=== PATIENT | male | born 1950 | race Caucasian/White ===

== ENCOUNTER 2017-10-14 05:59 | Inpatient (IN) | payer MEDICAID, MEDICARE ==
[~2017-10-14] VITALS: Ht 180.3 cm; Wt 99.8 kg
[~2017-10-14 05:59] MED LIST: ALBU8.5H8 IH; ASPI-618 PO; ATOR40TA PO; AZEL23SP EA NOSTRIL; CHOL400C8 PO; LISI-607 PO; Nitroglycerin SL; SITA50TA PO; TAMS0.4C34 PO
--- NOTE | 2017-10-14 06:06 | NUR ---
Pt BIB [facility], reports pt has upper quadrant ABD pain JL=285; IV 20g L AC. Pt c/o of severe upper ABD pain, 10/10, and tenderness w/guarding. Pt denies CP, SOB, dizziness, n/v, no other complaints, moderate distress noted.
[2017-10-14 06:33] LABS: BASOPHILS # (AUTO) 0.1 K/uL (0.0-8.0); BASOPHILS % (AUTO) 0.9 % (0.0-2.0); EOSINOPHILS # (AUTO) 0.2 K/uL (0.0-0.7); EOSINOPHILS % (AUTO) 3.4 % (0.0-7.0); HEMATOCRIT 47.9 % (36.7-47.1); LYMPHOCYTES # (AUTO) 1.2 K/uL (20.0-40.0); LYMPHOCYTES % (AUTO) 17.3 % (20.5-51.5); MEAN CORPUSCULAR HEMOGLOBIN 29.8 uug (23.8-33.4); MEAN CORPUSCULAR HGB CONC 34 g/dL (32.5-36.3); MEAN CORPUSCULAR VOLUME 88.9 fL (73.0-96.2); MONOCYTES # (AUTO) 0.3 K/uL (2.0-10.0); MONOCYTES % (AUTO) 4.9 % (0.0-11.0); NEUTROPHILS # (AUTO) 5.2 K/uL (1.8-8.9); NEUTROPHILS % (AUTO) 73.5 % (38.5-71.5); PLATELET COUNT (AUTO) 150 K/uL (152-348); RED BLOOD CELL COUNT(AUTO) 5.38 MIL/uL (4.06-5.63); WHITE BLOOD COUNT (AUTO) 7.1 K/uL (3.6-10.2)
[2017-10-14 06:45] LABS: BILIRUBIN,DIRECT 0.1 mg/dL (0.0-0.2); BILIRUBIN,TOTAL 0.4 mg/dL (0.2-1.0); POTASSIUM 4.4 mmol/L (3.5-5.1)
[2017-10-14] MEDS ORDERED: MORPHINE SULFATE 2 MG/1 ML DISP.SYRIN IV ONE (06:45)
[2017-10-14] MEDS ORDERED: IV NS 1000 ML 1,000 ML IV ONE (06:45)
[2017-10-14] MEDS ORDERED: ONDANSETRON IV *ER 4 MG/2 ML VIAL IV ONE (06:45)
[2017-10-14 07:02] LABS: CREATININE 1.4 mg/dL (0.6-1.3)
[2017-10-14] MEDS ORDERED: ONDANSETRON 4 MG/2 ML VIAL ONE (07:04)
[2017-10-14] MEDS ORDERED: MORPHINE SULFATE 4 MG/1 ML DISP.SYRIN ONE (07:04)
[2017-10-14] MEDS ORDERED: IV NORMAL SALINE 0 ML IV ONE (07:09)
[2017-10-14] MEDS ORDERED: IOHEXOL 300MG/ML 100 ML INFUS..BTL ONE (07:09)
[2017-10-14] MEDS ORDERED: NORMAL SALINE FLUSH 10 ML DISP.SYRIN ONE (07:09)
--- NOTE | 2017-10-14 07:12 | NUR ---
Pt going to CT.
--- NOTE | 2017-10-14 07:29 | NUR ---
assumed pt care 66 years old male with abd pain pt returns from ct alert, oriented x4 stated pain improved lab drawn result in progress will continue to monitor.
[2017-10-14 08:18] LABS: *BILIRUBIN,URIN NEGATIVE (NEGATIVE); *BLOOD, URINE 1+ (NEGATIVE); *CLARITY,URINE CLEAR (CLEAR); *KETONES,URINE NEGATIVE (NEGATIVE); *PROTEIN,URINE NEGATIVE (NEGATIVE); *UROBILINOGEN,URINE 0.2 E.U./dl (NORMAL); LEUKOCYTE ESTERASE ,URINE NEGATIVE (NEGATIVE); NITRITE, URINE NEGATIVE (NEGATIVE); PH,URINE 5.5 (5.0-8.0); UGLUCOSE NEGATIVE (NEGATIVE)
[2017-10-14 08:33] LABS: *COLOR,URINE COLORLESS (YELLOW)
[2017-10-14 08:37] LABS: BACTERIA,URINE NONE SEEN /HPF (NONE SEEN); RBC,URINE 0-3 /HPF (0-3); SQUAMOUS EPITHELIAL CELL,UR FEW /HPF (NONE SEEN); WBC,URINE 0-3 /HPF (0-3)
[2017-10-14] MEDS ORDERED: METRONIDAZOLE 500 MG/NS 100 ML PIGGYBACK IV ONE (09:00)
[2017-10-14] MEDS ORDERED: CIPROFLOXACIN IV 400 MG in PREMIXED 1 EACH IV SCH (09:00)
[2017-10-14] MEDS ORDERED: IV NS 1000 ML 1,000 ML IV PRN (09:00)
--- NOTE | 2017-10-14 09:13 | NUR ---
Dr Delfin Mahmood talked to Dr Shell for surgery consult, pt awaiting for admit bed
--- NOTE | 2017-10-14 09:30 | NUR ---
called nurse Rivera for report and replied she will call back after meds pass.
--- NOTE | 2017-10-14 09:41 | NUR ---
called [facility] at [phone]
[2017-10-14] MEDS ORDERED: METRONIDAZOLE 500 MG/NS 100ML 100 ML IV ONE (09:51)
[2017-10-14] MEDS ORDERED: ONDANSETRON 4 MG/2 ML VIAL IV PRN (10:15)
[2017-10-14] MEDS ORDERED: ALBUTEROL SULFATE 8 GM HFA.AER.AD IH PRN (10:15)
[2017-10-14] MEDS ORDERED: MORPHINE SULFATE 2 MG/1 ML DISP.SYRIN IV PRN (10:15)
[2017-10-14] MEDS ORDERED: MORPHINE SULFATE 4 MG/1 ML DISP.SYRIN IV PRN (10:30)
[2017-10-14] MEDS ORDERED: ALBUTEROL SULFATE 2.5 MG/3 ML NEBU NEB PRN (10:30)
--- NOTE | 2017-10-14 10:30 | NUR ---
RECEIVED PATIENT FROM ER. ORIENTED TO ROOM, MADE COMFORTABLY. DENIES ACUTE PAIN. 11/24 COMFORT NUMBER. AT BEDSIDE , SUPPORTIVE OF PATIENT CARE. AWARE NPO , TELE AND OTHER MD ORDERS , VERBALIZED UNDERSTANDING.
--- NOTE | 2017-10-14 11:00 | NUR ---
FAMILY AT BEDSIDE, SUPPORTIVE OF PATIENT CARE.
[2017-10-14 11:38] VITALS: BP 116/65
[2017-10-14] MEDS ORDERED: DEXTROSE 50% 50 ML DISP.SYRIN IV PRN (11:45)
[2017-10-14] MEDS ORDERED: INSULIN REGULAR, HUMAN 300 UNIT/3 ML VIAL SQ PRN (11:45)
[2017-10-14] MEDS: PIPERACILLIN/TAZOBACTAM/D5W 50 ML IV SCH ×3 (12:28→22:35)
[2017-10-14] MEDS: POTASSIUM CHLORIDE 20 MEQ in IV D5/ 0.9% NACL 1,000 ML IV PRN (12:29)
[2017-10-14] MEDS: BLOOD SUGAR DIAGNOSTIC 1 EACH STRIP VI SCH ×3 (12:30→23:14)
--- NOTE | 2017-10-14 13:26 | NUR ---
NPO MAINTAINED, RESTING WELL. NO DISTRESS NOTED.
--- NOTE | 2017-10-14 15:30 | NUR ---
NO NOTED REACTION FROM ANTIBIOTIC, PATIENT RESTING WELL.
[2017-10-14 15:48] VITALS: BP 109/76
--- NOTE | 2017-10-14 16:00 | NUR ---
COMPLAINT OF HEADACHE BUT REFUSED MEDS WHEN OFFERED, REFUSED ICE FOR COMFORT, WILL MONITOR. VITALS 124/75 HR 68 20
--- NOTE | 2017-10-14 17:45 | NUR ---
DOWN TO NUCLEAR MED FOR HIDA SCAN , LEFT TO REST.
--- NOTE | 2017-10-14 19:05 | NUR ---
BACK FROM 1ST HIDA SERIES, TOLERATED WELL
[2017-10-14 20:46] VITALS: BP 115/76
[2017-10-14 23:59] VITALS: BP 118/65
[2017-10-15] MEDS: PIPERACILLIN/TAZOBACTAM/D5W 50 ML IV SCH ×5 (04:36→22:03)
[2017-10-15 04:37] VITALS: BP 120/76
--- NOTE | 2017-10-15 06:09 | NUR ---
pt admitted for upper quadrant abdominal pain, completed HIDA scan last night, had episode of asthma attack upon returning from hida scan and then given breathing treatment with good relief. kept npo for possible surgery but no order yet. continue on iv fluids and antibiotics, complaining of headache this morning given morphine and zofran. no reaction noted pt went back to sleep.sinus rhythm on monitor, voiding,vss,afebrile. scd applied.
[2017-10-15] MEDS: POTASSIUM CHLORIDE 20 MEQ in IV D5/ 0.9% NACL 1,000 ML IV PRN ×2 (06:23→15:39)
[2017-10-15] MEDS: BLOOD SUGAR DIAGNOSTIC 1 EACH STRIP VI SCH ×4 (06:35→22:04)
[2017-10-15 06:52] LABS: BASOPHILS # (AUTO) 0.1 K/uL (0.0-8.0); EOSINOPHILS # (AUTO) 0.3 K/uL (0.0-0.7); EOSINOPHILS % (AUTO) 4.5 % (0.0-7.0); HEMATOCRIT 48.6 % (36.7-47.1); HEMOGLOBIN 16.6 g/dL (12.5-16.3); LYMPHOCYTES # (AUTO) 1.2 K/uL (20.0-40.0); LYMPHOCYTES % (AUTO) 18.9 % (20.5-51.5); MEAN CORPUSCULAR HEMOGLOBIN 30.2 uug (23.8-33.4); MEAN CORPUSCULAR HGB CONC 34 g/dL (32.5-36.3); MEAN CORPUSCULAR VOLUME 88.7 fL (73.0-96.2); MONOCYTES # (AUTO) 0.4 K/uL (2.0-10.0); MONOCYTES % (AUTO) 7.2 % (0.0-11.0); NEUTROPHILS # (AUTO) 4.2 K/uL (1.8-8.9); NEUTROPHILS % (AUTO) 68.4 % (38.5-71.5); PLATELET COUNT (AUTO) 145 K/uL (152-348); RED BLOOD CELL COUNT(AUTO) 5.48 MIL/uL (4.06-5.63); WHITE BLOOD COUNT (AUTO) 6.1 K/uL (3.6-10.2)
[2017-10-15 06:55] LABS: BILIRUBIN,TOTAL 1.2 mg/dL (0.2-1.0); CREATININE 1.4 mg/dL (0.6-1.3); MAGNESIUM 1.9 mg/dL (1.8-2.4); PHOSPHOROUS 3.1 mg/dL (2.5-4.9); POTASSIUM 4.3 mmol/L (3.5-5.1); TOTAL PROTEIN, SERUM 6.6 g/dL (6.4-8.2)
[2017-10-15 06:58] LABS: THYROID STIMULATING HORMONE 2.694 mIU/mL (0.358-3.740)
[2017-10-15] MEDS: PANTOPRAZOLE SODIUM 40 MG TABLET.DR PO SCH (07:35)
--- NOTE | 2017-10-15 07:45 | NUR ---
PT RECEIVED IN BED AWAKE.PT C/O PAIN V/S ARE STABLE ,CALL LIGHT WITH IN REACH PT SAID HE IS WAITING FOR THE SURGEN
[2017-10-15] MEDS ORDERED: CIPROFLOXACIN IV 400 MG in PREMIXED 1 EACH IV SCH (09:00)
[2017-10-15] MEDS ORDERED: KETOROLAC TROMETHAMINE 15 MG INJ IVP PRN (10:15)
[2017-10-15 11:00] VITALS: BP 131/77
[2017-10-15] MEDS ORDERED: ACETAMINOPHEN 325 MG TABLET PO PRN (12:00)
[2017-10-15] MEDS: SUCRALFATE 1 G TABLET PO SCH ×3 (12:45→21:58)
[2017-10-15] MEDS ORDERED: DEXTROSE 50% 50 ML DISP.SYRIN IV PRN (13:00)
[2017-10-15] MEDS: ASPIRIN EC 81 MG TABLET.DR PO SCH (13:32)
[2017-10-15 15:20] VITALS: BP 138/85
--- NOTE | 2017-10-15 15:57 | NUR ---
pt seen by gastrologist
--- NOTE | 2017-10-15 19:30 | NUR ---
19PT AWAKE ALERT ORIENTEDX4. PT WILL BE NPO AT MIDNIGHT. PT IS AWARE. PT IV INTACT AND PATENT. SAFETY AND COMFORT PROVIDED.
[2017-10-15 20:15] VITALS: BP 124/78
--- NOTE | 2017-10-15 20:45 | NUR ---
HANDOFF REPORT GIVEN TO MURPHY DEL TORO .
--- NOTE | 2017-10-15 21:00 | NUR ---
RECEIVED PATIENT IN BED ALERT ORIENTED, NO COMPLAIN OF PAIN AT THIS TIME, REMIND PATIENT THAT HE NEEDS TO BE NPO AFTER MIDNIGHT, CALL LIGHT WITHIN REACH.
[2017-10-15] MEDS: TAMSULOSIN HCL 0.4 MG CAP.SR.24H PO SCH (21:58)
[2017-10-16] MEDS: PIPERACILLIN/TAZOBACTAM/D5W 50 ML IV SCH ×4 (05:03→23:21)
[2017-10-16] MEDS: POTASSIUM CHLORIDE 20 MEQ in IV D5/ 0.9% NACL 1,000 ML IV PRN (05:13)
[2017-10-16] MEDS: PANTOPRAZOLE SODIUM 40 MG TABLET.DR PO SCH (06:05)
[2017-10-16 06:35] VITALS: BP 123/72
[2017-10-16] MEDS: BLOOD SUGAR DIAGNOSTIC 1 EACH STRIP VI SCH ×5 (06:54→20:52)
--- NOTE | 2017-10-16 07:08 | NUR ---
PATIENT SLEPT ON AND OFF, NO SOB NO CHEST PAIN, NO COMPLAIN OF PAIN AT THIS TIME. CONT ON NPO, ASSISTED WITH TOILETING, CALL LIGHT WITHIN REACH.
[2017-10-16 07:09] LABS: BASOPHILS # (AUTO) 0.1 K/uL (0.0-8.0); BASOPHILS % (AUTO) 0.9 % (0.0-2.0); EOSINOPHILS # (AUTO) 0.4 K/uL (0.0-0.7); EOSINOPHILS % (AUTO) 5.8 % (0.0-7.0); HEMATOCRIT 47.7 % (36.7-47.1); HEMOGLOBIN 16.1 g/dL (12.5-16.3); LYMPHOCYTES # (AUTO) 1.5 K/uL (20.0-40.0); LYMPHOCYTES % (AUTO) 22.9 % (20.5-51.5); MEAN CORPUSCULAR HEMOGLOBIN 29.9 uug (23.8-33.4); MEAN CORPUSCULAR HGB CONC 34 g/dL (32.5-36.3); MEAN CORPUSCULAR VOLUME 88.8 fL (73.0-96.2); MONOCYTES # (AUTO) 0.5 K/uL (2.0-10.0); MONOCYTES % (AUTO) 7.5 % (0.0-11.0); NEUTROPHILS % (AUTO) 62.9 % (38.5-71.5); PLATELET COUNT (AUTO) 133 K/uL (152-348); RED BLOOD CELL COUNT(AUTO) 5.37 MIL/uL (4.06-5.63); WHITE BLOOD COUNT (AUTO) 6.4 K/uL (3.6-10.2)
[2017-10-16] MEDS: SUCRALFATE 1 G TABLET PO SCH ×4 (07:30→20:54)
[2017-10-16 07:32] LABS: BILIRUBIN,TOTAL 0.9 mg/dL (0.2-1.0); CREATININE 1.6 mg/dL (0.6-1.3); MAGNESIUM 2.1 mg/dL (1.8-2.4); PHOSPHOROUS 2.8 mg/dL (2.5-4.9); POTASSIUM 4.5 mmol/L (3.5-5.1); TOTAL PROTEIN, SERUM 6.5 g/dL (6.4-8.2)
[2017-10-16] MEDS: LINAGLIPTIN 5 MG TABLET PO SCH (08:00)
[2017-10-16] MEDS: ASPIRIN EC 81 MG TABLET.DR PO SCH (08:50)
[2017-10-16] MEDS ORDERED: SITAGLIPTIN PHOSPHATE 50 MG TABLET PO SCH (09:00)
[2017-10-16] MEDS ORDERED: ONDANSETRON 4 MG/2 ML VIAL IV ONE (11:02)
[2017-10-16] MEDS ORDERED: SEVOFLURANE 250 ML BOTTLE IH ONE (11:02)
[2017-10-16] MEDS ORDERED: NEOSTIGMINE METHYLSULFATE 10 MG/10 ML VIAL IV ONE (11:02)
[2017-10-16] MEDS ORDERED: EPHEDRINE SULFATE 50 MG/ML AMPUL MC ONE (11:02)
[2017-10-16] MEDS ORDERED: PROPOFOL 200 MG/20 ML BOTTLE IV ONE (11:02)
[2017-10-16] MEDS ORDERED: IV NORMAL SALINE 1000 ML BAG IV ONE (11:02)
[2017-10-16] MEDS ORDERED: DEXAMETHASONE SOD PHOSPHATE 4 MG INJ IV ONE (11:02)
[2017-10-16] MEDS ORDERED: GLYCOPYRROLATE 0.2 MG/ML VIAL MC ONE (11:02)
[2017-10-16] MEDS ORDERED: LIDOCAINE HCL 1% 20 ML VIAL MC ONE (11:02)
[2017-10-16] MEDS ORDERED: CEFAZOLIN 1 G VIAL MC ONE (11:02)
[2017-10-16 11:36] VITALS: BP 121/70
[2017-10-16] MEDS ORDERED: LIDOCAINE HCL 1% 20 ML VIAL ONE (12:36)
[2017-10-16] MEDS ORDERED: BUPIVACAINE/EPI PF 0.25% 30 ML VIAL ONE (12:40)
[2017-10-16] MEDS ORDERED: ROCURONIUM BROMIDE 50 MG/5 ML VIAL ONE (15:50)
[2017-10-16] MEDS ORDERED: FENTANYL CITRATE 100 MCG/2 ML AMPUL ONE ×3 (15:50→19:48)
[2017-10-16] MEDS ORDERED: BUPIVACAINE PF 0.5% 30 ML VIAL ONE (18:39)
[2017-10-16 20:30] VITALS: BP 152/77
[2017-10-16] MEDS ORDERED: MORPHINE SULFATE 2 MG/1 ML DISP.SYRIN IV PRN (20:30)
[2017-10-16] MEDS ORDERED: MORPHINE SULFATE 4 MG/1 ML DISP.SYRIN IV PRN (20:30)
[2017-10-16] MEDS ORDERED: HYDROCODONE/APAP 5-325MG TABLET PO PRN ×2 (20:30)
[2017-10-16] MEDS ORDERED: POTASSIUM CHLORIDE 20 MEQ in IV D5 1/2 NS 1000 ML 1,000 ML IV PRN (20:30)
--- NOTE | 2017-10-16 20:31 | NUR ---
patient received from PACU s/p lap cholecystectomy. Awake alert and oriented. abdomen with 4 lap sites with 2x2 dressing with tegaderm. Vital signs taken and recorded. BP 152/77 HR 74 Resp 20 temp 95.6 98% on 2L O2. Patient started on clear liquids no nausea nor vomiting noted. Tolerated well. Will monitor patient. Kept comfortable. No acute distress noted.
[2017-10-16 20:45] VITALS: BP 125/82
[2017-10-16] MEDS: TAMSULOSIN HCL 0.4 MG CAP.SR.24H PO SCH (20:54)
[2017-10-16] MEDS: POTASSIUM CHLORIDE 20 MEQ in IV D5 1/2 NS 1000 ML 1,000 ML IV PRN (21:11)
[2017-10-17] VITALS: BP 143/90
[2017-10-17 04:00] VITALS: BP 116/71
[2017-10-17] MEDS: PIPERACILLIN/TAZOBACTAM/D5W 50 ML IV SCH ×4 (04:25→22:30)
[2017-10-17] MEDS: SUCRALFATE 1 G TABLET PO SCH ×4 (06:30→20:44)
[2017-10-17] MEDS: PANTOPRAZOLE SODIUM 40 MG TABLET.DR PO SCH (06:30)
[2017-10-17] MEDS: BLOOD SUGAR DIAGNOSTIC 1 EACH STRIP VI SCH ×4 (06:32→20:54)
[2017-10-17 06:51] LABS: BASOPHILS # (AUTO) 0.1 K/uL (0.0-8.0); BASOPHILS % (AUTO) 0.8 % (0.0-2.0); EOSINOPHILS % (AUTO) 0.4 % (0.0-7.0); HEMATOCRIT 46.3 % (36.7-47.1); HEMOGLOBIN 15.7 g/dL (12.5-16.3); LYMPHOCYTES % (AUTO) 10.1 % (20.5-51.5); MEAN CORPUSCULAR HEMOGLOBIN 30.3 uug (23.8-33.4); MEAN CORPUSCULAR HGB CONC 34 g/dL (32.5-36.3); MEAN CORPUSCULAR VOLUME 89.1 fL (73.0-96.2); MONOCYTES # (AUTO) 0.7 K/uL (2.0-10.0); MONOCYTES % (AUTO) 6.9 % (0.0-11.0); NEUTROPHILS # (AUTO) 8.1 K/uL (1.8-8.9); NEUTROPHILS % (AUTO) 81.8 % (38.5-71.5); PLATELET COUNT (AUTO) 154 K/uL (152-348); RED BLOOD CELL COUNT(AUTO) 5.19 MIL/uL (4.06-5.63); WHITE BLOOD COUNT (AUTO) 9.9 K/uL (3.6-10.2)
[2017-10-17] MEDS: LINAGLIPTIN 5 MG TABLET PO SCH (08:00)
[2017-10-17 08:50] LABS: CREATININE 1.5 mg/dL (0.6-1.3); POTASSIUM 4.8 mmol/L (3.5-5.1)
[2017-10-17] MEDS: INSULIN REGULAR, HUMAN 300 UNIT/3 ML VIAL SQ PRN (08:56)
[2017-10-17 11:40] VITALS: BP 122/85
[2017-10-17 11:43] VITALS: BP 121/69
[2017-10-17] MEDS: POTASSIUM CHLORIDE 20 MEQ in IV D5 1/2 NS 1000 ML 1,000 ML IV PRN (13:18)
[2017-10-17] MEDS ORDERED: ACETAMINOPHEN/CODEINE 300-30 MG TABLET PO PRN (15:45)
[2017-10-17 15:54] VITALS: BP 125/73
[2017-10-17] MEDS: METOCLOPRAMIDE HCL 10 MG TABLET PO SCH ×2 (16:30→20:44)
--- NOTE | 2017-10-17 18:34 | NUR ---
PT WILL STAY UNTIL TOMORROW. POSSIBLE D/C. PT IS CALM, COOPERATIVE, HAS HAD SEVERAL BMS. PT TOLERATING LIQUIDS AT THIS TIME NO SOLID FOOD EATEN. PT USES SPIROMETER AND ENCOURAGED TO AMBULATE. PT SHOWS NO SIGNS OF RESPIRATORY DISTRESS, VITALS STABLE AT THIS TIME. DAUGHTER AT THE BEDSIDE. CONTINUE TO MONITOR PT.
--- NOTE | 2017-10-17 19:30 | NUR ---
PT AWAKE, ALERT AND ORIENTEDX4. PT VITAL SIGNS WITHIN NORMAL LIMIT. PT SHOWS NO SIGNS OF DISTRESS. PT SAID HE HAD BOWEL MOVEMENT ALREADY. ADVISED TO USE THE SPIROMETER. CALL LIGHT WITHIN REACH. BED ALARM ON. WILL CONTINUE TO MONITOR.
[2017-10-17 20:00] VITALS: BP 111/60
[2017-10-17] MEDS: TAMSULOSIN HCL 0.4 MG CAP.SR.24H PO SCH (20:44)
[2017-10-18] MEDS: PANTOPRAZOLE SODIUM 40 MG TABLET.DR PO SCH (06:23)
[2017-10-18] MEDS: SUCRALFATE 1 G TABLET PO SCH ×2 (06:29→11:31)
[2017-10-18] MEDS: METOCLOPRAMIDE HCL 10 MG TABLET PO SCH ×2 (06:29→11:31)
[2017-10-18] MEDS: BLOOD SUGAR DIAGNOSTIC 1 EACH STRIP VI SCH ×2 (06:30→11:09)
--- NOTE | 2017-10-18 06:30 | NUR ---
PT SLEPT INTERMITTENTLY. PT USED SPIROMETER. PT VITALS SIGNS STABLE. PT SHOWS NO SIGNS OF DISTRESS. PT HAVE 3 BOWEL MOVEMENT ON MY SHIFT. ALL MEDICATIONS GIVEN. ALL NEEDS ARE MET. SAFETY AND COMFORT PROVIDED.
[2017-10-18 06:56] VITALS: BP 117/64
[2017-10-18] MEDS: POTASSIUM CHLORIDE 20 MEQ in IV D5 1/2 NS 1000 ML 1,000 ML IV PRN (07:11)
[2017-10-18] MEDS: LINAGLIPTIN 5 MG TABLET PO SCH (07:12)
--- NOTE | 2017-10-18 07:45 | NUR ---
RECEIVED PATIENT IN BED ALERT ORIENTED, NO COMPLAIN OF PAIN AT THIS TIME,, CALL LIGHT WITHIN REACH.V/S ARE STABLE.
[2017-10-18] MEDS ORDERED: METO10TA3 PO (11:20)
[2017-10-18] MEDS ORDERED: SUCR1TAB PO (11:20)
[2017-10-18] MEDS ORDERED: ONDA4TAB11 PO (11:20)
[2017-10-18] MEDS ORDERED: ACET-1467 PO (11:20)
[2017-10-18] MEDS ORDERED: PANT40TA2 PO (11:20)
[2017-10-18] MEDS: INSULIN REGULAR, HUMAN 300 UNIT/3 ML VIAL SQ PRN (11:27)
[2017-10-18 11:43] VITALS: BP 113/67
--- NOTE | 2017-10-18 12:24 | NUR ---
D/C ORDERS RECEIVED NOTED AND CARRIED OUT.DE/C [place]PLOCK PER MD ORDERS.D/C INSTRUCTIONS GIVEN TO THE PT.PT VERBALIZED UNDERSTANDING ALL THE INSTRUCTIONS.PT LEFT THE FACILITY VIA PRIVATE CAR IN STABLE CONDITION.
[2017-10-23] MEDS ORDERED: ASPIRIN EC 81 MG TABLET.DR PO SCH ×2 (09:00)
== END 2017-10-18 12:20 | disposition home or self-care (01) | DRG 417 ==
LOC: ER 05:59 → MED 10:07 → TELE 10:54 → MED 10-15 11:15
PROVIDERS: ADMIT Internal Medicine; ATTEND Nurse Practitioner Acute Care
PROC: 0DJ08ZZ Inspection of Upper Intestinal Tract, Via Natural or Artificial Opening Endoscopic (ICD-10-PCS; 2017-10-16)
PROC: 0FT44ZZ Resection of Gallbladder, Percutaneous Endoscopic Approach (ICD-10-PCS; principal; 2017-10-16 15:30)
PROC: 0DNU4ZZ Release Omentum, Percutaneous Endoscopic Approach (ICD-10-PCS; 2017-10-16 15:30)
DX: K80.00 Calculus of gallbladder with acute cholecystitis without obstruction (principal); N17.0 Acute kidney failure with tubular necrosis; D68.9 Coagulation defect, unspecified; D69.59 Other secondary thrombocytopenia; E11.22 Type 2 diabetes mellitus with diabetic chronic kidney disease; N18.3 Chronic kidney disease, stage 3 (moderate); D75.1 Secondary polycythemia; K76.0 Fatty (change of) liver, not elsewhere classified; N28.1 Cyst of kidney, acquired; K29.50 Unspecified chronic gastritis without bleeding; K82.8 Other specified diseases of gallbladder; I12.9 Hypertensive chronic kidney disease with stage 1 through stage 4 chronic kidney disease, or unspecified chronic kidney disease; Z79.84 Long term (current) use of oral hypoglycemic drugs; Z79.899 Other long term (current) drug therapy; Z72.0 Tobacco use; K21.9 Gastro-esophageal reflux disease without esophagitis; N40.0 Benign prostatic hyperplasia without lower urinary tract symptoms; E66.9 Obesity, unspecified; Z68.31 Body mass index [BMI] 31.0-31.9, adult; K40.20 Bilateral inguinal hernia, without obstruction or gangrene, not specified as recurrent; J45.909 Unspecified asthma, uncomplicated; Z87.11 Personal history of peptic ulcer disease; Z96.89 Presence of other specified functional implants
CPT/HCPCS: 36415; 43235; 70030-TC; 71045; 78445; 82378; 83690; 83735; 84100; 84153; 84443; 85025; 85610; 86301; 93005; 94664; A4217; A4663; A9537; J0690; J0744; J1100; J1815; J1885; J2270; J2405; J2543; J2710; J3010; J3480; J3490; J7030; J7042; J7050; J8597; Q9967